=== PATIENT | male | born 1975 | race Caucasian/White ===

== ENCOUNTER 2017-08-06 18:13 | Emergency (ER) | payer SELFPAY ==
[~2017-08-06] VITALS: Ht 182.9 cm; Wt 110.0 kg
[2017-08-06 18:14] VITALS: BP 144/97; PULSE 81; RESP 18; TEMP 99; O2SAT 97
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
[2017-08-06] MEDS ORDERED: IBUPROFEN 600 MG TAB PO ONE (22:30)
[2017-08-06] MEDS ORDERED: ACETAMINOPHEN/HYDROcodone 325 MG/5 MG TAB PO ONE (22:30)
[2017-08-06] MEDS ORDERED: DICL75TA PO (22:31)
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
== END 2017-08-06 23:26 | disposition home or self-care (01) ==
LOC: NEPD 18:13
DX: S63.502A Unspecified sprain of left wrist, initial encounter (principal); S60.222A Contusion of left hand, initial encounter; S63.602A Unspecified sprain of left thumb, initial encounter; Z79.899 Other long term (current) drug therapy; W18.30XA Fall on same level, unspecified, initial encounter
CPT/HCPCS: 73110; 99283; L3908